=== PATIENT | male | born 1955 | race Caucasian/White ===

== ENCOUNTER 2022-01-26 10:45 | Outpatient (CLI) | payer BC, SELFPAY ==
[2022-01-26 13:54] LABS: Albumin* 4.3 g/dL (3.3-5.0); Chloride* 107 mmol/L (96-114); Sodium* 139 mmol/L (135-149)
[2022-01-26 13:55] LABS: Potassium* 4.1 mmol/L (3.6-5.1)
[2022-01-26 13:56] LABS: Cholesterol* 189 mg/dL (90-199)
[2022-01-26 13:57] LABS: Alanine Aminotransferase* 20 U/L (4-50); Alkaline Phosphatase* 93 U/L (40-150); Aspartate Amino Transferase* 28 U/L (12-35); Bilirubin Total* 0.3 mg/dL (0.1-1.5); Blood Urea Nitrogen* 24 mg/dL (7-30); Carbon Dioxide* 25 mmol/L (20-32); Creatinine* 0.9 mg/dL (0.5-1.5); Estimated Glomerular Filt Rate 95 ml/min; Glucose* 104 mg/dL (60-115); Total Protein* 6.6 g/dL (6.0-8.3)
[2022-01-26 13:58] LABS: Calcium* 8.8 mg/dL (8.4-10.6); HDL Cholesterol* 40 mg/dL (>=40); LDL Cholesterol Calculated 96 mg/dL (<100); Triglycerides* 265 mg/dL (40-149)
[2022-01-26 14:24] LABS: PSA Screen* 0.76 ng/mL (0.10-4.00)
== END 2022-01-26 10:46 | disposition home or self-care (01) ==
PROVIDERS: PCP Family Medicine; Visit Provider Family Medicine
DX: Z00.00 Encounter for general adult medical examination without abnormal findings (principal); E78.00 Pure hypercholesterolemia, unspecified; I10 Essential (primary) hypertension; Z12.5 Encounter for screening for malignant neoplasm of prostate
CPT/HCPCS: 80053; 80061; 84153; 84443

== ENCOUNTER 2022-04-04 16:57 | Outpatient (CLI) | payer BC, SELFPAY | END 2022-04-04 16:58 | disposition home or self-care (01) | LOC: LKVREF 16:58 | PROVIDERS: PCP Family Medicine; Visit Provider Family Medicine | DX: A69.23 Arthritis due to Lyme disease (principal); B99.9 Unspecified infectious disease | CPT/HCPCS: 86617; 86618 ==

== ENCOUNTER 2023-04-14 08:18 | Outpatient (CLI) | payer BC, SELFPAY | END 2023-04-14 08:19 | disposition home or self-care (01) | LOC: NFLDREF 04-17 03:37 | PROVIDERS: PCP Family Medicine; Referring Provider Family Medicine; Visit Provider Family Medicine | DX: E55.9 Vitamin D deficiency, unspecified (principal); E78.1 Pure hyperglyceridemia; I10 Essential (primary) hypertension; Z12.5 Encounter for screening for malignant neoplasm of prostate | CPT/HCPCS: 80048; 80061; 82306; 84153 ==

== ENCOUNTER 2024-06-27 08:27 | Outpatient (CLI) | payer BC, SELFPAY | END 2024-06-27 08:28 | disposition home or self-care (01) | LOC: NFLDREF 06-29 02:37 | PROVIDERS: PCP Family Medicine; Referring Provider Family Medicine; Visit Provider Family Medicine | DX: E78.1 Pure hyperglyceridemia (principal); I10 Essential (primary) hypertension; Z12.5 Encounter for screening for malignant neoplasm of prostate | CPT/HCPCS: 80048; 80061; 82306; G0103 ==

== ENCOUNTER 2025-01-10 08:35 | Outpatient (CLI) | payer BC, SELFPAY | END 2025-01-10 08:36 | disposition home or self-care (01) | LOC: NFLDREF 01-14 03:02 | PROVIDERS: PCP Family Medicine; Referring Provider Family Medicine; Visit Provider Family Medicine | DX: E78.1 Pure hyperglyceridemia (principal); I10 Essential (primary) hypertension | CPT/HCPCS: 80061 ==